=== PATIENT | female | born 1940 | race Caucasian/White ===

== ENCOUNTER 2017-11-15 08:35 | Inpatient (IN) | payer OTHER ==
[~2017-11-15] VITALS: Ht 162.6 cm; Wt 56.7 kg
[~2017-11-15 08:35] MED LIST: BUPR300T53 PO; CEFE1FRO IV; DEXA4 PO; ENOX40DI8 SQ; HYDR-2132 PO; METO-391 PO; PREG100C PO; Vancomycin Hcl IV; atrovastatin PO
[2017-11-15 11:05] LABS: BASOPHILS % (AUTO) 0.3 % (0.0-5.0); EOSINOPHILS % (AUTO) 1.1 % (0.0-8.0); HEMATOCRIT 28.9 % (36-48); LYMPHOCYTES % (AUTO) 13.9 % (21.0-51.0); MEAN CORPUSCULAR HEMOGLOBIN 34.5 pg (27.0-33.0); MEAN CORPUSCULAR HGB CONC 34.7 g/dL (32.0-36.0); MEAN CORPUSCULAR VOLUME 99.4 fL (79-99); MONOCYTES % (AUTO) 11.7 % (3.0-13.0); NUCLEATED RED BLOOD CELLS 0.1 % (0.0-0.19); PLATELET COUNT (AUTO) 199 K/uL (130-400); RED BLOOD CELL COUNT(AUTO) 2.91 MIL/uL (4.00-5.50); RED CELL DISTRIBUTION WIDTH 13.1 % (11.0-15.5); WHITE BLOOD COUNT (AUTO) 8.6 K/uL (4.8-10.8)
[2017-11-15 11:16] LABS: POTASSIUM 3.5 mmol/L (3.5-5.1)
[2017-11-15 11:24] LABS: ALBUMIN 3.2 g/dL (3.5-5.0); BILIRUBIN,TOTAL 0.6 mg/dL (0.2-1.0)
[2017-11-15 11:32] LABS: INR 1.09 (0.85-1.15); PARTIAL THROMBOPLASTIN TIME 27.2 SEC (26.3-35.5); PROTHROMBIN TIME 11.4 SEC (9.6-11.6)
[2017-11-15 11:49] VITALS: BP 118/65
[2017-11-15] MEDS ORDERED: MORPHINE SULFATE 2 MG/ML 1ML SYG IVP PRN (14:15)
[2017-11-15] MEDS ORDERED: ONDANSETRON HCL 4 MG/2 ML VIAL IVP PRN (14:15)
[2017-11-15] MEDS ORDERED: MORPHINE SULFATE 4 MG/1ML SYG IVP PRN (14:15)
[2017-11-15] MEDS ORDERED: AMINOCAPROIC ACID IV SCH (14:30)
[2017-11-15] MEDS ORDERED: SODIUM CHLORIDE 0.9% IV SCH (14:30)
[2017-11-15 16:25] VITALS: BP 111/51
[2017-11-15] MEDS ORDERED: VENL75TA63 PO (17:59)
[2017-11-15] MEDS ORDERED: ROPI1TAB38 PO (18:00)
[2017-11-15] MEDS: SODIUM CHLORIDE 0.9% 1000ML 1,000 ML IV SCH (18:01)
[2017-11-15] MEDS ORDERED: POTASSIUM CHLORIDE 10% ELIXIR 20 MEQ/15 ML UDCUP PO PRN (18:15)
[2017-11-15] MEDS ORDERED: POTASSIUM CHLORIDE 20MEQ/100ML 100 ML IV PRN (18:15)
[2017-11-15] MEDS ORDERED: ACETAMINOPHEN-CODEINE 300/30MG TAB PO PRN ×2 (18:15)
[2017-11-15] MEDS ORDERED: LIDOCAINE HCL-MPF 1% 2ML VIAL IVP PRN (18:15)
[2017-11-15] MEDS ORDERED: SODIUM CHLORIDE 0.9% 1000ML 1,000 ML IV ONE (19:47)
[2017-11-15 20:00] VITALS: BP 134/62
[2017-11-15] MEDS: VENLAFAXINE HCL 75 MG TAB PO SCH (20:59)
[2017-11-15] MEDS ORDERED: SODIUM CHLORIDE 0.9% 1000ML 1,000 ML IV SCH (21:00)
[2017-11-15] MEDS: POTASSIUM CHLORIDE 20 MEQ ERTAB PO PRN ×2 (21:00→22:49)
[2017-11-16] VITALS (24 sets, daily range): BP systolic 99–160; BP diastolic 42–88
[2017-11-16] MEDS: SODIUM CHLORIDE 0.9% 1000ML 1,000 ML IV SCH ×3 (04:01→21:15)
[2017-11-16 05:45] LABS: HEMATOCRIT 27.1 % (36-48); MEAN CORPUSCULAR HEMOGLOBIN 33.7 pg (27.0-33.0); MEAN CORPUSCULAR HGB CONC 33.8 g/dL (32.0-36.0); MEAN CORPUSCULAR VOLUME 99.6 fL (79-99); PLATELET COUNT (AUTO) 185 K/uL (130-400); RED BLOOD CELL COUNT(AUTO) 2.72 MIL/uL (4.00-5.50); RED CELL DISTRIBUTION WIDTH 13.3 % (11.0-15.5); WHITE BLOOD COUNT (AUTO) 5.9 K/uL (4.8-10.8)
[2017-11-16 05:55] LABS: CREATININE 0.9 mg/dL (0.5-1.5); POTASSIUM 3.8 mmol/L (3.5-5.1)
[2017-11-16] MEDS ORDERED: PHARMACY COMMUNICATION MISC SCH (06:00)
[2017-11-16] MEDS: VENLAFAXINE HCL 75 MG TAB PO SCH ×2 (07:49→21:11)
[2017-11-16] MEDS: METOPROLOL TARTRATE 25 MG TAB PO SCH ×2 (08:53→21:11)
[2017-11-16] MEDS ORDERED: PANTOPRAZOLE SODIUM 40 MG TABLET.DR PO SCH (09:00)
[2017-11-16] MEDS: ATORVASTATIN CALCIUM 20 MG TABLET PO SCH (09:00)
[2017-11-16] MEDS ORDERED: MAGNESIUM HYDROXIDE 30 ML/UDCUP PO SCH (09:00)
[2017-11-16] MEDS ORDERED: ENOXAPARIN SODIUM 30 MG/0.3 ML SQ SCH (09:00)
[2017-11-16] MEDS ORDERED: Metoprolol Succinate 50 MG PO SCH (09:00)
[2017-11-16] MEDS ORDERED: LACTATED RINGERS 1000ML 1,000 ML IV ONE (12:15)
[2017-11-16] MEDS ORDERED: WATER FOR INJECTION,STERILE 20 ML VIAL ONE (12:34)
[2017-11-16] MEDS ORDERED: CEFAZOLIN SODIUM 1 GM VIAL ONE ×3 (12:34→13:39)
[2017-11-16] MEDS ORDERED: OCTYL 2-CYANOACRYLATE 1 EACH TP ONE (13:07)
[2017-11-16] MEDS ORDERED: PHENYLEPHRINE HCL 10 MG/ML 1ML VIAL IV ONE (13:21)
[2017-11-16] MEDS ORDERED: LIDOCAINE PF 2% 5ML ABBOJECT ONE (13:21)
[2017-11-16] MEDS ORDERED: SODIUM CHLORIDE FOR INHALATION 3 ML VIAL.NEB. IH ONE (13:21)
[2017-11-16] MEDS ORDERED: LIDOCAINE HCL 4% LTA SOL 4 ML VIAL ONE (13:21)
[2017-11-16] MEDS ORDERED: NEOSTIGMINE 5MG/5ML SYR IV ONE (13:21)
[2017-11-16] MEDS ORDERED: ROPIVACAINE 0.5% 5MG/ML 30ML IJ ONE (13:21)
[2017-11-16] MEDS ORDERED: ROCURONIUM BROMIDE 10MG/1ML 5ML VL ONE (13:21)
[2017-11-16] MEDS ORDERED: LIDOCAINE HCL-MPF 1% 5ML AMP IJ ONE (13:21)
[2017-11-16] MEDS ORDERED: GLYCOPYRROLATE 0.2 MG/ML 5 ML VIAL ONE (13:21)
[2017-11-16] MEDS ORDERED: SODIUM CHLORIDE 0.9% 10 ML VIAL ONE (13:21)
[2017-11-16] MEDS ORDERED: PROPOFOL 10 MG/ML 20ML VIAL IV ONE (13:22)
[2017-11-16] MEDS ORDERED: MIDAZOLAM HCL 1 MG/ML 2ML VIAL ONE ×2 (13:22→18:49)
[2017-11-16] MEDS ORDERED: FENTANYL CITRATE PF 50 MCG/1 ML 2ML VIAL ONE (13:23)
[2017-11-16] MEDS ORDERED: VANCOMYCIN HCL 1 GM VIAL ONE ×2 (13:33→13:43)
[2017-11-16] MEDS ORDERED: TRANEXAMIC ACID 1000MG/10ML IV ONE (14:44)
[2017-11-16] MEDS ORDERED: CALCIUM CARBONATE 500 MG TABLET PO PRN (18:15)
[2017-11-16] MEDS ORDERED: POTASSIUM CHLORIDE 10% ELIXIR 20 MEQ/15 ML UDCUP PO PRN (18:15)
[2017-11-16] MEDS ORDERED: TEMAZEPAM 15 MG CAPSULE PO PRN (18:15)
[2017-11-16] MEDS ORDERED: DIPHENHYDRAMINE HCL 25 MG CAPSULE PO PRN (18:15)
[2017-11-16] MEDS ORDERED: POTASSIUM CHLORIDE 20MEQ/100ML 100 ML IV PRN (18:15)
[2017-11-16] MEDS ORDERED: LIDOCAINE HCL-MPF 1% 2ML VIAL IVP PRN (18:15)
[2017-11-16] MEDS ORDERED: TRAMADOL HCL 50 MG TABLET PO PRN (18:15)
[2017-11-16] MEDS ORDERED: KETOROLAC TROMETHAMINE 15MG/ML IV PRN (18:15)
[2017-11-16] MEDS ORDERED: POTASSIUM CHLORIDE 20 MEQ ERTAB PO PRN (18:15)
[2017-11-16] MEDS ORDERED: DiphenhydrAMINE HCL 50 MG/ML VIAL IVP PRN (18:15)
[2017-11-16] MEDS ORDERED: OXYCODONE HCL 5 MG TAB PO PRN ×2 (18:15)
[2017-11-16] MEDS ORDERED: PROMETHAZINE HCL 25 MG/ML 1ML AMPULE IM PRN (18:15)
[2017-11-16] MEDS ORDERED: MEPERIDINE-PF 25 MG/ML SYG ONE ×2 (18:37→18:48)
[2017-11-16] MEDS ORDERED: PROMETHAZINE HCL 25 MG/ML 1ML AMPULE IM ONE (19:04)
[2017-11-16] MEDS ORDERED: CELECOXIB 200 MG CAP PO SCH (21:00)
[2017-11-16] MEDS ORDERED: PREGABALIN 25 MG CAP PO SCH (21:00)
[2017-11-16] MEDS ORDERED: FAMOTIDINE 20MG TAB 20 MG TAB PO SCH (21:00)
[2017-11-16] MEDS: ACETAMINOPHEN 325 MG TAB PO SCH (21:11)
[2017-11-17] MEDS: SODIUM CHLORIDE 0.9% 1000ML 1,000 ML IV SCH ×4 (00:01→14:05)
[2017-11-17] MEDS: VANCOMYCIN 1GM+NS 250ML 250 ML IV SCH ×2 (00:03→11:55)
[2017-11-17] MEDS: ACETAMINOPHEN 325 MG TAB PO SCH ×5 (00:04→23:57)
[2017-11-17 00:31] VITALS: BP 120/53
[2017-11-17 04:00] VITALS: BP_SYST 118; BP_SYST 132; BP_DIAS 60; BP_DIAS 66
[2017-11-17 05:52] LABS: HEMATOCRIT 22.4 % (36-48); MEAN CORPUSCULAR HEMOGLOBIN 34.1 pg (27.0-33.0); MEAN CORPUSCULAR HGB CONC 33.9 g/dL (32.0-36.0); MEAN CORPUSCULAR VOLUME 100.7 fL (79-99); PLATELET COUNT (AUTO) 213 K/uL (130-400); RED BLOOD CELL COUNT(AUTO) 2.23 MIL/uL (4.00-5.50); RED CELL DISTRIBUTION WIDTH 13.5 % (11.0-15.5); WHITE BLOOD COUNT (AUTO) 9.3 K/uL (4.8-10.8)
[2017-11-17 06:02] LABS: CREATININE 0.9 mg/dL (0.5-1.5); POTASSIUM 3.1 mmol/L (3.5-5.1)
[2017-11-17] MEDS: POTASSIUM CHLORIDE 20 MEQ ERTAB PO PRN ×2 (06:43→11:56)
[2017-11-17 08:04] VITALS: BP 149/73
[2017-11-17] MEDS ORDERED: LORAZEPAM 1 MG TABLET PO PRN (08:30)
[2017-11-17] MEDS ORDERED: LORAZEPAM 2 MG/ML 1 ML VIAL IVP PRN (08:30)
[2017-11-17] MEDS: VENLAFAXINE HCL 75 MG TAB PO SCH ×2 (09:10→21:00)
[2017-11-17] MEDS: POLYETHYLENE GLYCOL 3350 17 GM POWD.PACK PO SCH (09:10)
[2017-11-17] MEDS: PREGABALIN 25 MG CAP PO SCH ×2 (09:10→20:59)
[2017-11-17] MEDS: ATORVASTATIN CALCIUM 20 MG TABLET PO SCH (09:11)
[2017-11-17] MEDS: FE FUMARATE/FA/MV, MIN COMB#15 1 TAB PO PRN (09:11)
[2017-11-17] MEDS: PANTOPRAZOLE SODIUM 40 MG TABLET.DR PO SCH ×2 (09:11→21:00)
[2017-11-17] MEDS: POTASSIUM CHLORIDE 20 MEQ ERTAB PO SCH ×2 (09:11→21:00)
[2017-11-17] MEDS: METOPROLOL TARTRATE 25 MG TAB PO SCH ×2 (09:11→20:59)
[2017-11-17] MEDS: ENOXAPARIN SODIUM 40 MG/0.4 ML SYRINGE SQ SCH (09:12)
[2017-11-17 11:25] VITALS: BP 134/73
[2017-11-17] MEDS: PSYLLIUM SEED 1 EACH PACKET PO SCH (12:00)
[2017-11-17 15:06] LABS: BASOPHILS % (AUTO) 0.4 % (0.0-5.0); EOSINOPHILS % (AUTO) 0.3 % (0.0-8.0); HEMATOCRIT 21.9 % (36-48); LYMPHOCYTES % (AUTO) 13.8 % (21.0-51.0); MEAN CORPUSCULAR HGB CONC 34.9 g/dL (32.0-36.0); MEAN CORPUSCULAR VOLUME 100.5 fL (79-99); NEUTROPHILS % (AUTO) 67.5 % (40.0-77.0); NUCLEATED RED BLOOD CELLS 0.2 % (0.0-0.19); PLATELET COUNT (AUTO) 231 K/uL (130-400); RED BLOOD CELL COUNT(AUTO) 2.18 MIL/uL (4.00-5.50); RED CELL DISTRIBUTION WIDTH 13.5 % (11.0-15.5); WHITE BLOOD COUNT (AUTO) 10.2 K/uL (4.8-10.8)
[2017-11-17 16:18] VITALS: BP 113/65
[2017-11-17 19:00] VITALS: BP_SYST 116; BP_SYST 121; BP_DIAS 64; BP_DIAS 74
[2017-11-18 00:05] VITALS: BP 130/74
[2017-11-18 04:18] VITALS: BP 134/69
[2017-11-18] MEDS: ACETAMINOPHEN 325 MG TAB PO SCH ×2 (05:38→11:50)
[2017-11-18 05:52] LABS: HEMATOCRIT 22.1 % (36-48); MEAN CORPUSCULAR HEMOGLOBIN 34.2 pg (27.0-33.0); MEAN CORPUSCULAR HGB CONC 33.9 g/dL (32.0-36.0); MEAN CORPUSCULAR VOLUME 100.7 fL (79-99); PLATELET COUNT (AUTO) 251 K/uL (130-400); RED BLOOD CELL COUNT(AUTO) 2.19 MIL/uL (4.00-5.50); RED CELL DISTRIBUTION WIDTH 13.6 % (11.0-15.5); WHITE BLOOD COUNT (AUTO) 8.2 K/uL (4.8-10.8)
[2017-11-18 05:56] LABS: CREATININE 0.9 mg/dL (0.5-1.5); POTASSIUM 3.8 mmol/L (3.5-5.1)
[2017-11-18] MEDS: SODIUM CHLORIDE 0.9% 1000ML 1,000 ML IV SCH (06:48)
[2017-11-18 06:55] VITALS: BP 114/67
[2017-11-18] MEDS: METOPROLOL TARTRATE 25 MG TAB PO SCH (07:43)
[2017-11-18] MEDS: ATORVASTATIN CALCIUM 20 MG TABLET PO SCH (07:43)
[2017-11-18] MEDS: PANTOPRAZOLE SODIUM 40 MG TABLET.DR PO SCH (07:43)
[2017-11-18] MEDS: POLYETHYLENE GLYCOL 3350 17 GM POWD.PACK PO SCH (07:43)
[2017-11-18] MEDS: POTASSIUM CHLORIDE 20 MEQ ERTAB PO SCH (07:43)
[2017-11-18] MEDS: ENOXAPARIN SODIUM 40 MG/0.4 ML SYRINGE SQ SCH (07:44)
[2017-11-18] MEDS: FE FUMARATE/FA/MV, MIN COMB#15 1 TAB PO PRN (08:13)
[2017-11-18] MEDS: VENLAFAXINE HCL 75 MG TAB PO SCH (08:37)
[2017-11-18 11:00] VITALS: BP 116/54
[2017-11-18] MEDS: PSYLLIUM SEED 1 EACH PACKET PO SCH (11:49)
[2017-11-18 16:00] VITALS: BP 118/53
[2017-11-18] MEDS ORDERED: HYDR-309 PO (18:07)
[2017-11-18] MEDS ORDERED: FE F1CAP9 PO (18:07)
[2017-11-18] MEDS ORDERED: BISACODYL 5 MG TABLET.DR PO PRN (18:15)
[2017-11-19] MEDS ORDERED: BISACODYL 10 MG SUPP.RECT RC PRN (18:15)
== END 2017-11-18 19:00 | disposition home or self-care (01) | DRG 483 ==
LOC: EDH 08:35 → EDHIP 10:27 → OBSVTOIN 10:27 → 4AH 10:58
PROVIDERS: ADMIT Internal Medicine; ATTEND Internal Medicine
PROC: 0RRJ00Z Replacement of Right Shoulder Joint with Reverse Ball and Socket Synthetic Substitute, Open Approach (ICD-10-PCS; principal; 2017-11-16 13:45)
DX: S42.291A Other displaced fracture of upper end of right humerus, initial encounter for closed fracture (principal); F05 Delirium due to known physiological condition; D64.9 Anemia, unspecified; F32.1 Major depressive disorder, single episode, moderate; M46.24 Osteomyelitis of vertebra, thoracic region; S00.11XA Contusion of right eyelid and periocular area, initial encounter; E78.5 Hyperlipidemia, unspecified; W01.0XXA Fall on same level from slipping, tripping and stumbling without subsequent striking against object, initial encounter; S00.83XA Contusion of other part of head, initial encounter; S00.81XA Abrasion of other part of head, initial encounter; E87.6 Hypokalemia; G89.29 Other chronic pain; I12.9 Hypertensive chronic kidney disease with stage 1 through stage 4 chronic kidney disease, or unspecified chronic kidney disease; M19.90 Unspecified osteoarthritis, unspecified site; K59.00 Constipation, unspecified; M46.44 Discitis, unspecified, thoracic region; M85.80 Other specified disorders of bone density and structure, unspecified site; N18.2 Chronic kidney disease, stage 2 (mild); Y93.89 Activity, other specified; Y99.8 Other external cause status; Z82.49 Family history of ischemic heart disease and other diseases of the circulatory system; Z86.61 Personal history of infections of the central nervous system; Z90.49 Acquired absence of other specified parts of digestive tract; Z90.710 Acquired absence of both cervix and uterus; Z90.722 Acquired absence of ovaries, bilateral; Y92.098 Other place in other non-institutional residence as the place of occurrence of the external cause; Z88.6 Allergy status to analgesic agent
CPT/HCPCS: 36415; 70450; 70486; 71046; 73020; 73030; 73060; 73080; 80048; 80053; 85025; 85027; 85610; 85730; 86850; 86900; 86901; 86922; 93005; A4565; C1713; J0690; J1650; J2001; J2060; J2175; J2250; J2270; J2370; J2550; J2704; J2710; J2795; J3010; J3370; J3490; J7030; J7120

== ENCOUNTER → 2018-09-19 | Outpatient (CLI) | payer OTHER ==
[~2018-09-19] MED LIST changes: -BUPR300T53 PO; -CEFE1FRO IV; -DEXA4 PO; -ENOX40DI8 SQ; +FE F1CAP9 PO; -HYDR-2132 PO; +HYDR-4457 PO; -PREG100C PO; +VENL75TA63 PO; -Vancomycin Hcl IV
== END | disposition home or self-care (01) ==
LOC: LAB 12:47
PROVIDERS: ATTEND Internal Medicine
DX: S52.612A Displaced fracture of left ulna styloid process, initial encounter for closed fracture (principal); M25.512 Pain in left shoulder; M79.602 Pain in left arm; Z72.89 Other problems related to lifestyle; X58.XXXA Exposure to other specified factors, initial encounter; Y93.89 Activity, other specified; Y92.89 Other specified places as the place of occurrence of the external cause; Y99.8 Other external cause status
CPT/HCPCS: 73030; 73060; 73080; 73090; 73110; 73130